=== PATIENT | female | born 1960 | race Caucasian/White ===

== ENCOUNTER 2017-06-11 14:48 | Observation (INO) | payer BC ==
[~2017-06-11] VITALS: Ht 160 cm; Wt 108.0 kg
[~2017-06-11 14:48] MED LIST: ATORVASTATIN CA10 MG PO; LEVOTHYROXINE25 MCG PO; METFORMIN HCL500 MG PO; METFORMIN HCL850 MG PO; MIRALAX17 GM PO; SYNTHROID25 MCG PO; SYSTANE BALANCE10 ML BOTH EYES; TOPIRAMATE100 MG PO
[2017-06-11 15:40] LABS: HEMATOCRIT 41.1 % (36.0-46.0); HEMOGLOBIN 13.7 G/DL (11.9-15.5); MCH 31.3 PG (29.0-34.0); MCHC 33.3 G/DL (30.0-36.0); MCV 93.8 FL (83-99); PLATELET COUNT 271 K/uL (156-360); RBC DIS.WIDTH-CV 12.5 % (11.8-14.6); RBC DIS.WIDTH-SD 43.1 % (39-53); RED BLOOD COUNT 4.38 M/uL (3.80-5.20); WHITE BLOOD COUNT 10.6 K/uL (4.1-10.2)
[2017-06-11 15:48] LABS: APPEARANCE CLEAR ((CLEAR)); BILIRUBIN NEGATIVE; BLOOD NEGATIVE; COLOR YELLOW ((YELLOW)); GLUCOSE (STRIP) 50; KETONES NEGATIVE; LEUKOCYTES NEGATIVE; NITRITE NEGATIVE; PROTEIN (STRIP) NEGATIVE; SPECIFIC GRAVITY 1.013 (1.000-1.030); UCUL ADDED? NO; UROBILINOGEN 0.2 MG/DL (0.2-1.0)
[2017-06-11 15:51] LABS: ALBUMIN 4.1 g/dL (3.2-4.8)
[2017-06-11 15:52] LABS: CHLORIDE 101 mEq/L (99-109); POTASSIUM 3.6 mEq/L (3.7-5.4); SODIUM 138 mEq/L (136-147)
[2017-06-11 15:54] LABS: GLUCOSE 196 mg/dL (70-99); TOTAL PROTEIN 7.1 g/dL (6.4-8.3)
[2017-06-11 15:56] LABS: TOTAL BILIRUBIN 0.4 mg/dL (0.0-1.0)
[2017-06-11 15:57] LABS: ALKALINE PHOSPHATASE 66 IU/L (3-129)
[2017-06-11 15:58] LABS: CREATININE 0.9 mg/dL (0.6-1.3); GFR ESTIMATE (CALCULATED) > 59 mL/min/
[2017-06-11 15:59] LABS: AST (GOT) 26 IU/L (2-34); UREA NITROGEN (BUN) 22 mg/dL (9-23)
[2017-06-11 16:00] LABS: ALT (GPT) 36 IU/L (3-49)
[2017-06-11 16:01] LABS: LIPASE 22 U/L (1.0-51.0); TROP-I INTERPRETATION NEGATIVE; TROPONIN-I < 0.01 ng/mL (0.0-0.30)
[2017-06-11 18:23] LABS: TROP-I INTERPRETATION NEGATIVE; TROPONIN-I < 0.01 ng/mL (0.0-0.30)
[2017-06-11 21:43] VITALS: BP 141/65
[2017-06-11 23:29] VITALS: BP 121/69
[2017-06-12 01:17] LABS: TROP-I INTERPRETATION NEGATIVE; TROPONIN-I < 0.01 ng/mL (0.0-0.30)
[2017-06-12 03:17] VITALS: BP 115/57
[2017-06-12 06:22] LABS: HDL CHOLESTEROL 42 MG/DL (Desirable>=50); LDL CHOLESTEROL 124 mg/dL (Desirable<100); NON-HDL CHOLESTEROL 160 mg/dL (Desirable<160); TOTAL CHOLESTEROL 202 mg/dL (Desirable<200); TRIGLYCERIDES 180 MG/DL (Normal: <150)
[2017-06-12 06:25] LABS: TROP-I INTERPRETATION NEGATIVE; TROPONIN-I < 0.01 ng/mL (0.0-0.30)
[2017-06-12 07:45] VITALS: BP 140/63
[2017-06-12 12:35] VITALS: BP 115/57
== END 2017-06-12 15:34 | disposition home or self-care (01) ==
LOC: EME 14:48 → EDOF 19:30 → ENRESERV 19:35 → 5WEST 21:25
PROVIDERS: Hospitalist; Physician Assistant; Physician Assistant Medical
DX: R07.89 Other chest pain (principal); R00.2 Palpitations; E03.9 Hypothyroidism, unspecified; E11.9 Type 2 diabetes mellitus without complications; E78.5 Hyperlipidemia, unspecified; E66.01 Morbid (severe) obesity due to excess calories; Z68.41 Body mass index [BMI] 40.0-44.9, adult; D68.9 Coagulation defect, unspecified; Z86.19 Personal history of other infectious and parasitic diseases; Z79.84 Long term (current) use of oral hypoglycemic drugs; Z88.8 Allergy status to other drugs, medicaments and biological substances
CPT/HCPCS: 71046; 71275; 80053; 80061; 81003; 82948; 83690; 84439; 84443; 84484; 85027; 85379; 85610; 85730; 93005; 93971; 99281; 99284; G0378; J1650; J1815; J7030